=== PATIENT | male | born 1980 | race Hispanic/Latino ===

== ENCOUNTER 2022-11-07 11:28 | Emergency (ER) | payer OTHER ==
[~2022-11-07] VITALS: Ht 188 cm; Wt 103.2 kg
[2022-11-07] MEDS ORDERED: ONDANSETRON ODT8 MG PO (13:11)
[2022-11-07] MEDS ORDERED: CLONIDINE HCL0.1 MG PO (13:11)
[2022-11-07 13:20] VITALS: BP 117/80
== END 2022-11-07 13:20 | disposition home or self-care (01) ==
LOC: ED 11:28 → EDBD 11:29 → ED 11:29
DX: F15.23 Other stimulant dependence with withdrawal (principal)
CPT/HCPCS: 36415; 80053; 81003; 83735; 85025; J2405; J7121

== ENCOUNTER 2023-05-17 12:16 | Emergency (ER) | payer OTHER ==
[~2023-05-17] VITALS: Ht 188 cm; Wt 96.7 kg
[~2023-05-17 12:16] MED LIST: CLONIDINE HCL0.1 MG PO; ONDANSETRON ODT8 MG PO
[2023-05-17] MEDS ORDERED: VISTARIL25 MG PO (12:46)
[2023-05-17] MEDS ORDERED: DOXYCYCLINE HY100 MG PO (12:46)
[2023-05-17] MEDS ORDERED: CYMBALTA30 MG PO (12:46)
[2023-05-17] MEDS ORDERED: TINACTIN108 GM TOP (12:46)
[2023-05-17 12:53] VITALS: BP 123/78
== END 2023-05-17 12:55 | disposition home or self-care (01) ==
LOC: ED 12:16
DX: F19.929 Other psychoactive substance use, unspecified with intoxication, unspecified (principal); A49.02 Methicillin resistant Staphylococcus aureus infection, unspecified site; B35.3 Tinea pedis; F32.A Depression, unspecified
CPT/HCPCS: 99283